=== PATIENT | female | born 1930 | race Two or more races ===

== ENCOUNTER 2020-07-26 20:39 | Emergency (ER) | payer OTHER ==
[~2020-07-26] VITALS: Ht 149.9 cm; Wt 47.6 kg
[2020-07-26] MEDS ORDERED: FORTAMET500 MG PO (21:22)
[2020-07-26] MEDS ORDERED: SYNTHROID50 MCG PO (21:22)
[2020-07-26] MEDS ORDERED: LIPITOR40 M1 PO (21:23)
[2020-07-26] MEDS ORDERED: CLARITIN10 MG PO (21:23)
[2020-07-26] MEDS ORDERED: ARICEPT10 MG PO (21:23)
== END 2020-07-27 02:43 | disposition left against medical advice (07) ==
LOC: ER 20:39
DX: I95.89 Other hypotension (principal); Z03.818 Encounter for observation for suspected exposure to other biological agents ruled out; R50.9 Fever, unspecified; R53.81 Other malaise; R42 Dizziness and giddiness